=== PATIENT | male | born 1975 ===

== ENCOUNTER 2022-01-16 07:02 | Outpatient (CLI) | payer SELFPAY | END 2022-01-16 07:03 | disposition critical access hospital (66) | LOC: EMS 07:02 | DX: M54.50 Low back pain, unspecified (principal) | CPT/HCPCS: A0425; A0429 ==

== ENCOUNTER 2022-01-16 07:18 | Emergency (ER) | payer SELFPAY ==
[2022-01-16 07:45] VITALS: BP 161/99
--- NOTE | 2022-01-16 08:05 | ED Physician Documentation ---
History of Present Illness - Stated complaint Stated Complaint: BACK PX - Chief complaint Chief Complaint: General - History obtained from History obtained from: Patient, EMS - Additonal information Additional information: The patient is brought to the emergency department by EMS for chief complaint of back pain. He also states that he needs "$50, a house, and a car." The patient additionally states he would like ibuprofen. The patient is homeless and has been using methamphetamines. He states that he injured his back a couple of days ago while hoisting one of his bags. He states it is hurting on the right side and indicates that the pain is in the lumbosacral region. Patient denies any numbness or tingling going down his leg. No pain in his leg. No loss of bowel or bladder control. The patient is also requesting food. No other complaints at this time. Review of Systems Ten Systems: 10 systems reviewed and negative Constitutional: reports: Reviewed and negative Eyes: reports: Reviewed and negative Ears: reports: Reviewed and negative Nose: reports: Reviewed and negative Throat: reports: Reviewed and negative Cardiac: reports: Reviewed and negative Respiratory: reports: Reviewed and negative GI: reports: Reviewed and negative : reports: Reviewed and negative Skin: reports: Reviewed and negative Musculoskeletal: reports: Back pain Neurologic: reports: Reviewed and negative Psychiatric: reports: Reviewed and negative Endocrine: reports: Reviewed and negative Immunocompromised: reports: Reviewed and negative PD PAST MEDICAL HISTORY - Allergies Allergies/Adverse Reactions: Allergies Allergy/AdvReac Type Severity Reaction Status Date / Time No Known Drug Allergies Allergy Verified 01/16/22 07:30 PD ED PE NORMAL - Vitals Vital signs reviewed: Yes - General General: Alert and oriented X 3, No acute distress, Well developed/nourished, Other (The patient is actually well-groomed and dressed in clean, dry, nice clothes. He is in no apparent distress.) - HEENT HEENT: Atraumatic, PERRL, EOMI, Moist mucous membranes - Neck Neck: Supple, no meningeal sign - Cardiac Cardiac: RRR, No murmur, Strong equal pulses - Respiratory Respiratory: No respiratory distress, Clear bilaterally - Back Back: No CVA TTP, No spinal TTP, Other (Mild tenderness palpation of her right low back laterally, and the soft tissues. No mass.) - Derm Derm: Normal color, Warm and dry, No rash, Other (No edema, induration, fluctuant mass, or erythema in the area of pain.) - Extremities Extremities: No deformity, No edema - Neuro Neuro: Alert and oriented X 3, director risk 2-12 intact, Normal speech - Psych Psych: Normal mood, Normal affect Results - Vitals Vitals: Vital Signs - 24 hr 01/16/22 07:28 Temperature 37.2 C Heart Rate 69 Respiratory 18 Rate Blood Pressure 161/99 H O2 Saturation 99 Oxygen O2 Source Room air PD MEDICAL DECISION MAKING - ED course Complexity details: reviewed old records, considered differential, d/w patient ED course: I discussed with the patient that we could give him either ibuprofen or Toradol here in the emergency department. He wanted to know if we could give him medication to go home with and I explained to him that I would give him a prescription for ibuprofen, if he wished. Although the patient had initially wanted ibuprofen when he came in, he stated that "you can give me all the prescriptions you want and I probably will not go pick them up". He then asked if he could have some food, so he was offered crackers. The patient then stated "you can keep your crackers and your medication. Can I just get a ride to where I need to go?" I did state to the patient that we can give him a bus token if you would like. The patient stated "I do not want a bus token". At this point in time the patient had declined treatment and I did not find evidence of an emergent condition, so I did prepare discharge paperwork. The patient was then noted to leave the emergency department, and throw all of his belongings into a recycle bin just outside the hospital and exit the premises in possession of the bin. The police were summoned and the recycle bin was recovered with no further incident to the patient. Departure - Departure Disposition: 01 Home, Self Care Clinical Impression: Low back strain Qualifiers: Encounter type: initial encounter Qualified Code(s): S39.012A - Strain of muscle, fascia and tendon of lower back, initial encounter Condition: Stable Instructions: ED Sprain Strain Lumbar Comments: You have declined intervention here in the emergency department. Please follow- up with your primary care physician as needed and take ibuprofen [id number] to help with your back soreness. Your back pain will be expected to go away on its own, given time. Discharge Date/Time: 01/16/22 08:14
== END 2022-01-16 08:14 | disposition home or self-care (01) ==
LOC: EDBD → ED 07:18
DX: S39.012A Strain of muscle, fascia and tendon of lower back, initial encounter (principal); X58.XXXA Exposure to other specified factors, initial encounter; Z59.00 Homelessness unspecified
CPT/HCPCS: 99282; 99283